=== PATIENT | male | born 1995 | race Caucasian/White ===

== ENCOUNTER 2016-11-01 11:34 | Emergency (ER) | payer SELFPAY ==
[~2016-11-01] VITALS: Ht 188 cm; Wt 128.6 kg
[2016-11-01 11:40] VITALS: BP 155/82
== END 2016-11-01 12:35 | disposition home or self-care (01) ==
LOC: EDUNIT# 11:34 → ED 11:36
DX: H66.93 Otitis media, unspecified, bilateral (principal); J06.9 Acute upper respiratory infection, unspecified; K52.9 Noninfective gastroenteritis and colitis, unspecified
CPT/HCPCS: 99283